=== PATIENT | female | born 1975 | race Caucasian/White ===

== ENCOUNTER 2018-05-01 13:06 | Outpatient (CLI) | payer OTHER | END 2018-05-01 13:07 | disposition home or self-care (01) | LOC: BICMAMMO 13:06 | PROVIDERS: ATTEND Student in an Organized Health Care Education/Training Program | DX: N63.20 Unspecified lump in the left breast, unspecified quadrant (principal) | CPT/HCPCS: 77066; G0279 ==

== ENCOUNTER 2021-06-28 13:48 | Outpatient (CLI) | payer BC | END 2021-06-28 13:49 | disposition home or self-care (01) | LOC: BICMAMMO 13:48 | PROVIDERS: ATTEND Student in an Organized Health Care Education/Training Program | DX: N63.20 Unspecified lump in the left breast, unspecified quadrant (principal) | CPT/HCPCS: 77066; G0279 ==

== ENCOUNTER 2022-03-03 14:37 | Outpatient (CLI) | payer BC | END 2022-03-03 14:38 | disposition home or self-care (01) | LOC: BICMAMMO 14:37 | PROVIDERS: ATTEND Student in an Organized Health Care Education/Training Program | DX: N63.25 Unspecified lump in the left breast, overlapping quadrants (principal) | CPT/HCPCS: G0279 ==